=== PATIENT | female | born 1945 | race African-American/Black ===

== ENCOUNTER 2020-11-30 14:55 | Emergency (ER) | payer MEDICARE, OTHER ==
[2020-11-30] MEDS ORDERED: diphenhydrAMINE 50 MG/ML VIAL ONE (15:12)
[2020-11-30] MEDS ORDERED: methylPREDNISolone Sod Succ/PF 125 MG/2 ML VIAL ONE (15:12)
[2020-11-30] MEDS ORDERED: Famotidine/PF 20 mg/2ml Vial ONE (15:12)
[2020-11-30] MEDS ORDERED: Tranexamic Acid 1,000 MG/10 ML VIAL ONE (15:31)
[2020-11-30] MEDS ORDERED: Sodium Chloride 0.9% 100 ML ONE (15:47)
== END 2020-11-30 19:25 | disposition home or self-care (01) ==
LOC: NAV ERS 14:55
DX: T78.3XXA Angioneurotic edema, initial encounter (principal); E11.9 Type 2 diabetes mellitus without complications; I10 Essential (primary) hypertension; M79.7 Fibromyalgia; Z79.84 Long term (current) use of oral hypoglycemic drugs; Z79.899 Other long term (current) drug therapy
CPT/HCPCS: 94760; 96374; 96375; J1200; J2930; S0028